=== PATIENT | male | born 1985 | race Caucasian/White ===

== ENCOUNTER 2017-01-26 15:39 | Emergency (ER) | payer SELFPAY ==
[~2017-01-26] VITALS: Ht 170.2 cm; Wt 73.0 kg
[2017-01-26 16:34] VITALS: BP 112/68
[2017-01-26] MEDS ORDERED: ACETAMINOPHEN 500MG TABLET PO ONE (17:00)
== END 2017-01-26 19:01 | disposition home or self-care (01) ==
LOC: ER 18:00
DX: S42.022A Displaced fracture of shaft of left clavicle, initial encounter for closed fracture (principal); S20.219A Contusion of unspecified front wall of thorax, initial encounter; M54.9 Dorsalgia, unspecified; V18.0XXA Pedal cycle driver injured in noncollision transport accident in nontraffic accident, initial encounter; Y93.55 Activity, bike riding; Y92.89 Other specified places as the place of occurrence of the external cause; F17.210 Nicotine dependence, cigarettes, uncomplicated
CPT/HCPCS: 73000; 99284; Z7610; A4565